=== PATIENT | male | born 1955 | race Caucasian/White ===

== ENCOUNTER 2018-02-08 11:15 | Emergency (ER) | payer OTHER ==
[~2018-02-08] VITALS: Ht 171.4 cm; Wt 69.4 kg
[~2018-02-08 11:15] MED LIST: ATIVAN0.5 M1 PO; LOSARTAN POTASS25 M1 PO; NICORELIEF2 MG PO; PRAVASTATIN SOD20 M2 PO; SERTRALINE HCL50 MG PO; TRAZODONE HCL50 M1 PO
--- NOTE | 2018-02-08 12:05 | ED EYE COMPLAINT ---
History of Present Illness General Chief Complaint: General Adult Stated Complaint: SENT BY MD FOR EVAL ?CLOGGED ARTERIES Source: patient Exam Limitations: no limitations Vital Signs & Intake/Output Vital Signs & Intake/Output Vital Signs Date Time Temp Pulse Resp B/P B/P Pulse O2 O2 Flow FiO2 Mean Ox Delivery Rate 02/08 1923 97.2 66 18 134/66 97 Room Air Room Air 02/08 1819 97.0 68 18 138/68 97 Room Air Room Air 02/08 1503 65 18 166/78 98 Room Air Room Air 02/08 1123 96.3 88 18 181/79 99 Room Air Room Air ED Intake and Output 02/09 0000 02/08 1200 Intake Total Output Total Balance Patient 153 lb Weight Weight Reported by Patient Measurement Method Allergies Coded Allergies: No Known Allergies (06/02/17) Reconcile Medications Clopidogrel Bisulfate (Plavix) 75 MG TABLET 1 TAB PO DAILY carotid artery stenosis Lorazepam (Ativan) 0.5 MG TABLET 0.5 MG PO 0800,1400,2000 panic/severe anxiety Losartan Potassium 25 MG TABLET 25 MG PO DAILY control blood pressure Nicotine (Nicorelief) 2 MG GUM 2 MG PO Q2 HRS NEEDED PRN nicotine cravings Pravastatin Sodium 20 MG TABLET 40 MG PO 1700 control lipids Sertraline HCl 50 MG TABLET 150 MG PO 1000 anti-anxiety/anti-panic Trazodone HCl 50 MG TABLET 50 MG PO AT BEDTIME NEEDED PRN INSOMNIA Triage Note: PT TO ED WITH C/O "MY VISION IN MY LEFT EYE IS GETTING WORSE, WENT TO SEE DR NAVI SAWYER TODAY, SENT TO ED FOR MRI, HE IS WORRIED ABOUT A BLOOD CLOT, I ORIGINALLY WENT TO HIM ABOUT MY LEFT KNEE I NEED AN XRAY OF THAT TOO". Triage Nurses Notes Reviewed? yes Onset: Abrupt Duration: week(s):, intermittent Timing: recent history Injury Environment: home HPI: 62-year-old male sent into the emergency room for further evaluation by his primary care doctor for intermittent vision loss in the left eye and has been going on for the past few weeks. Patient reports that he has been having blurry vision issues with his left eye for many months. Over last 2 weeks she's had 2 separate episodes that lasted about 5 minutes reads had vision loss in his left eye. He denies any pain to his eye. Denies any confusion or slurring of his words. Denies any weakness in any of the extremities. Denies any chest pain or shortness of breath. He comes in sent in by his primary care doctor for further evaluation. He reports that he went to see his primary care doctor primarily for his left knee pain which has been going on for quite some time. He does have some chronic issues before and this left knee. (Yamileth Oreilly) Past History Travel History Traveled to [place] past 21 day No Medical History Any Pertinent Medical History? see below for history Neurological: NONE EENT: NONE Cardiovascular: hypertension, HYPERLIPIDEMIA Respiratory: NONE Gastrointestinal: NONE Hepatic: NONE Renal: benign prost hyperplasia Musculoskeletal: NONE Psychiatric: MDD PTSD Endocrine: NONE Blood Disorders: NONE Cancer(s): NONE ASSEMBLER INSTALLER GENERAL/Reproductive: NONE Surgical History Surgical History: non-contributory Psychosocial History Who do you live with Patient/Self Services at Home None What is your primary language Chadian Tobacco Use: Current Daily Use Daily Tobacco Use Amount/Type: => 5 Cigarettes daily ETOH Use: occasional use Illicit Drug Use: marijuana Family History Family History, If Any: MOTHER (Breast cancer). SISTER (Colon cancer). Hx Contributory? No (Yamileth Oreilly) Review of Systems Review of Systems Constitutional: Reports: no symptoms. Eyes: Reports: see HPI. Ear: Reports: no symptoms. Nose: Reports: no symptoms. Mouth: Reports: no symptoms. Throat: Reports: no symptoms. Respiratory: Reports: no symptoms. Cardiovascular: Reports: no symptoms. GI: Reports: no symptoms. Genitourinary: Reports: no symptoms. Musculoskeletal: Reports: no symptoms. Skin: Reports: no symptoms. Neurological/Psychological: Reports: no symptoms. Hematologic/Endocrine: Reports: no symptoms. Immunologic/Allergic: Reports: no symptoms. All Other Systems: Reviewed and Negative (Yamileth Oreilly) Physical Exam General Appearance: well developed/nourished, mild distress General Inspection: normal inspection Eyelid: normal inspection Conjunctiva/Sclera: normal inspection Cornea: normal inspection EOM: intact Pupil: normal pupil, PERRL Anterior Chamber: funduscopic exam limited but no acute findings General Inspection: normal inspection Eyelid: normal inspection Conjunctiva/Sclera: normal inspection Cornea: normal inspection EOM: intact Pupil: normal pupil, PERRL Anterior Chamber: normal inspection Posterior Segments: funduscopic exam limited but no acute findings Physical Exam Head: atraumatic Nose: normal inspection Mouth/Throat: normal mouth inspection Neck: normal inspection, bruit left carotid Cardiovascular/Respiratory: normal breath sounds, regular rate/rhythm Neurologic/Psych: no motor/sensory deficits, awake, alert, oriented x 3, normal gait, normal mood/affect, 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 occlusion, carotid artery stenosis, CVA, Plan of Care: Orders Procedure Date/time Status Regular Diet 02/08 D Active PARTIAL THROMBOPLASTIN TIME 02/08 1157 Complete PROTHROMBIN TIME 02/08 1157 Complete COMPREHENSIVE METABOLIC PANEL 02/08 1157 Complete CBC WITHOUT DIFFERENTIAL 02/08 1157 Complete EKG 02/08 1157 Active Laboratory Tests 02/08/18 1504: Anion Gap 11, Estimated GFR > 60, BUN/Creatinine Ratio 18.0, Glucose 88, Calcium 9.6, Total Bilirubin 0.6, AST 25, ALT 24, Alkaline Phosphatase 45, Total Protein 7.5, Albumin 4.4, Globulin 3.1, Albumin/Globulin Ratio 1.4, PT 10.9, INR 1.00, APTT 32, CBC w Diff NO MAN DIFF REQ, RBC 3.47 L, MCV 100.6 H, MCH 33.9 H, MCHC 33.7, RDW 14.6 H, MPV 8.1, Gran % 65.9, Lymphocytes % 27.0, Monocytes % 5.9, Eosinophils % 1.1, Basophils % 0.1, Absolute Granulocytes 3.6, Absolute Lymphocytes 1.5, Absolute Monocytes 0.3, Absolute Eosinophils 0.1, Absolute Basophils 0 Diagnostic Imaging: Viewed by Me: Radiology Read, CT Scan, MRI, Ultrasound. Discussed w/RAD: Radiology Read, CT Scan, MRI, Ultrasound. Radiology Impression: PATIENT: FLIP ESTRADA PRESENT AGE: 62 PATIENT ACCOUNT NO: [id number] : 57 LOCATION: [facility] ORDERING PHYSICIAN: Yamileth SMALSL SERVICE DATE: 02/08/18 EXAM TYPE: CAT - CT HEAD ANGIOGRAM; CT NECK ANGIOGRAM EXAMINATION: CT HEAD ANGIOGRAM, CT NECK ANGIOGRAM CLINICAL INFORMATION: Intermittent vision loss left eye. Evaluate for clot. Bruit and left carotid. COMPARISON: Brain MRI same day. TECHNIQUE: Engineer Booster And Exhauster images were obtained. A CT angiogram of the head and neck was performed in the arterial phase after the intravenous administration of 95 mL Optiray 320. Pre and delayed postcontrast images of the head were also obtained. MIP reconstructions were generated in multiple orientations at the acquisition workstation. Multiple three-dimensional surface rendered images and maximum intensity projection images were generated on a dedicated 3-D lab workstation. Arterial stenoses are measured in accordance with NASCET criteria or similar method if applicable. Total exam dose-length product 1648.03 mGy-cm FINDINGS: Head: The delayed postcontrast images reveal no abnormal intracranial mass or enhancement. There is no intracranial mass effect or midline shift. Lateral and third ventricles are normal. No hydrocephalus. Baldwin-white matter differentiation is grossly preserved and there is no evidence of acute territorial infarct. No acute hemorrhage and no abnormal extra-axial collection. The calvarium and skull base are intact. There is a trace right mastoid tip effusion. Paranasal sinuses are well-aerated with exception of a few small mucous retention cysts within the alveolar recesses of the maxillary sinuses. CT angiogram neck: The aortic arch apex is normal and the origins of major aortic branches are patent. Partially calcified atheromatous plaque involves both carotid bifurcations. There is 75% stenosis of the left internal carotid artery at its origin and 50% post bulbar stenosis. There is no stenosis of the right extracranial internal carotid artery. The cervical segments of the vertebral arteries as well as their origins are widely patent. CT angiogram head: Calcified plaque causes no more than mild tandem narrowing within the cavernous segments of both internal carotid arteries. The intradural vertebral artery segments and basilar artery are patent. Visualized portions of the anterior, middle, and posterior cerebral artery complexes are normal. No evidence of high-grade stenosis or proximal large vessel occlusion is visualized within the intracranial vessels. Other: There is emphysema visualized within the apices of both lungs. Soft tissues of the neck including the thyroid gland are unremarkable. Grossly no pathologically enlarged cervical lymph nodes. IMPRESSION: There is 75% stenosis of the left internal carotid artery at its origin and 50% post bulbar stenosis of left internal carotid artery. A small amount of eccentric atheromatous plaque is visualized at the right carotid bifurcation. No stenosis of the right extracranial internal carotid artery. There is no more than mild tandem stenosis within the cavernous segments of internal carotid arteries. Otherwise no high- grade stenosis or proximal large vessel occlusion is visualized within the intracranial vessels. DICTATED BY: Jack Rincon MD DATE/TIME DICTATED:1822 TIP FIXER:[place] DATE/TIME TRANSCRIBED:02/08/181822 CONFIDENTIAL, DO NOT COPY WITHOUT APPROPRIATE AUTHORIZATION. <Electronically signed in Other Vendor System> SIGNED BY: Jack Rincon MD 02/08/181834, PATIENT: FLIP ESTRADA PRESENT AGE: 62 PATIENT ACCOUNT NO: [id number] : 57 LOCATION: [facility] ORDERING PHYSICIAN: Yamileth SMALLS SERVICE DATE: 02/08/18 EXAM TYPE: MRI - MRI-HEAD W/O LYN MR BRAIN WITHOUT IV CONTRAST CLINICAL INFORMATION: Intermittent vision loss of the left eye. Rule out CVA. COMPARISON: None available. TECHNIQUE: MRI of the brain without contrast was obtained using routine sequences. FINDINGS: Motion degraded study. There is no hydrocephalus, extra-axial surface collection, or herniation. There are T2 signal changes within the supratentorial white matter and central taylor, most likely mild to moderate chronic microangiopathy. The major flow voids at the skull base are preserved. Accounting for edge artifact within the occipital lobes bilaterally, no true acute infarcts are appreciated on the diffusion weighted series. There is no intracranial hemorrhage on the gradient recalled echo acquisition. The midline structures are normal. The cerebellar tonsils are normally positioned. The craniocervical junction is normal. Osseous marrow signal intensity is homogenous. The visualized soft tissues are unremarkable. There is mild mucosal thickening throughout the ethmoid air cells bilaterally and there is a small retention cyst within the left maxillary sinus. The mastoid air cells remain well-aerated. IMPRESSION: - Artifactually degraded study with no definite acute intracranial findings. No acute infarcts. - Mild to moderate chronic microangiopathy. DICTATED BY: Teddy Loo MD DATE/TIME DICTATED:02/08/181532 TIP FIXER:[place] DATE/ TIME TRANSCRIBED:02/08/181532 CONFIDENTIAL, DO NOT COPY WITHOUT APPROPRIATE AUTHORIZATION. <Electronically signed in Other Vendor System> SIGNED BY: Teddy Loo MD 02/08/18 1547, PATIENT: FLIP ESTRADA PRESENT AGE: 62 PATIENT ACCOUNT NO: [id number] : 57 LOCATION: [facility] ORDERING PHYSICIAN: Yamileth SMALLS SERVICE DATE: 02/08/18 EXAM TYPE : US - [id number] DOPPLER EXAMINATION: DUPLEX BILATERAL CAROTID ULTRASOUND CLINICAL INFORMATION: Carotid bruit COMPARISON: None. TECHNIQUE: Duplex bilateral carotid US was performed using real-time ultrasound and Doppler techniques (integrating B-mode 2D vascular images, Doppler spectral analysis and color flow Doppler imaging). These techniques were utilized to interrogate the extracranial carotid and vertebral arteries bilaterally. The degree of stenosis is based off criteria similar to NASCET. FINDINGS: 1. On the right: There is a hemodynamically significant stenosis correlating to 50-79% diameter reduction of the proximal internal carotid artery. A moderate amount of hyperechoic plaque is noted at the bifurcation extending into the proximal internal carotid artery. The peak systolic and diastolic velocities as measured within the proximal internal carotid artery equals 157 and 63 cm/s respectively. The vertebral artery is patent demonstrating antegrade flow. The right ECA demonstrates a moderate stenosis with peak systolic velocity of 262 cm/s. 2. On the left: There is a hemodynamically significant stenosis correlating to 50-79% diameter reduction of the proximal internal carotid artery. A moderate amount of hyperechoic plaque is noted at the bifurcation extending into the proximal internal carotid artery. The peak systolic and diastolic velocities as measured within the proximal internal carotid artery equals 166 and 30 cm/s respectively. The vertebral artery is patent demonstrating antegrade flow. The left external carotid artery shows no significant stenosis. IMPRESSION: Bilateral hemodynamically significant stenoses consistent with a 50-79% diameter reduction involving both the proximal left and right internal carotid arteries. DICTATED BY: Miles Marrero MD DATE/TIME DICTATED:02/08/181255 TIP FIXER: [place] DATE/TIME TRANSCRIBED:02/08/181255 CONFIDENTIAL, DO NOT COPY WITHOUT APPROPRIATE AUTHORIZATION. <Electronically signed in Other Vendor System> SIGNED BY: Miles Marrero MD 02/08/18 1402, PATIENT: FLIP ESTRADA PRESENT AGE: 62 PATIENT ACCOUNT NO: [id number] : LOCATION: [facility] ORDERING PHYSICIAN: Yamileth SMALLS SERVICE DATE: 2222 EXAM TYPE: RAD - XRY-KNEE COMPLETE LEFT EXAMINATION: XR KNEE, LEFT CLINICAL INFORMATION: Left knee pain. History of remote injury. No recent injury. COMPARISON: None TECHNIQUE: 5 views of the left knee. FINDINGS: There is diffuse osteopenia. No acute fracture or dislocation is seen. In the patellofemoral joint, there is joint space narrowing and spurring seen. There is also a bulky superior spur noted along the patella projecting into the joint. This may be due to sequelae of previous injury. Trace suprapatellar knee joint effusion is seen. The medial femoral compartment is well-maintained with only minimal spurring noted. Mild narrowing of the lateral femoral compartment is seen. IMPRESSION: 1. Prominent spur arising from the upper pole of the patella is seen, possibly related to sequelae of previous injury. Moderate patellofemoral osteoarthritic changes are noted with trace suprapatellar knee joint effusion. 2. Mild degenerative change in the medial and lateral femoral compartments. 3. No acute fracture or dislocation. DICTATED BY: Deena Campbell MD DATE/TIME DICTATED:02/08/181311 TIP FIXER:[place] DATE/TIME TRANSCRIBED:02/08/181311 CONFIDENTIAL, DO NOT COPY WITHOUT APPROPRIATE AUTHORIZATION. <Electronically signed in Other Vendor System> SIGNED BY: Deena Campbell MD 02/08/18 1318 Comments: 02/08/2018 5:58:[address] Colvin from vascular surgery. Patient is going to need a carotid endarterectomy. He will also need ophthalmology. He can see the patient tomorrow in the office but once the patient also see ophthalmology. Spoke with Dr. granda who can see the patient tomorrow in the office. Due to the fact the patient is asymptomatic at the moment and currently no visual symptoms there is nothing emergent for him have to do from an ophthalmology standpoint. Patient clinically looks well. Patient was reevaluated multiple times. This was a complex case that required multiple phone calls with consultants. Patient has been asymptomatic here in the emergency room. He needs close follow-up. Patient was told the importance of following up with the family law paralegal and vascular surgeon tomorrow. He is to return immediately to the emergency room if he has any recurrent symptoms. He understands and agrees with plan of care. (Yamileth Oreilly) Departure Departure Disposition: HOME OR SELF CARE Condition: Stable Clinical Impression Primary Impression: Amaurosis fugax of left eye Referrals: Vinicius DONALD,Josh Granda MD,Petar Simmons MD,Navi Baeza (PCP/Family) Additional Instructions: Follow-up with family law paralegal tomorrow. Follow-up with vascular surgeon tomorrow. Take aspirin 81 mg daily. Return immediately if any vision loss or any other concerns worsening symptoms. Please go over all results of today's visit with your primary care doctor. Contact your primary care doctor to let them know you were here in the emergency room. There may be nonspecific findings which may not be related to your visit today here in the emergency room but may require further evaluation and chronic monitoring by your primary care doctor. If you had a laceration today the chance of foreign body always remains. You should follow-up with your primary care doctor for recheck in 3-5 days for a wound check. If you had an x-ray done there is a chance that a fracture could have been missed on initial read and you should follow-up with your primary care doctor for repeat x-rays if symptoms persist. If your blood pressure was elevated here in the emergency room please have rechecked by [facility] primary care doctor within the next 48. If you were prescribed a narcotic here in the emergency room or any type of controlled substances you're not allowed to drive while taking this medication or operate any type of heavy machinery. Narcotics can make you feel lightheaded dizziness nausea and can cause constipation. You may need to pepper picker a stool softener. Thank you for choosing [facility] emergency room. Please return to the emergency room immediately if you have any other concerns worsening of symptoms. Departure Forms: Customer Survey General Discharge Information Prescriptions: Current Visit Scripts Clopidogrel Bisulfate (Plavix) 1 TAB PO DAILY #30 TAB (Yamileth Oreilly) PA/BRUSH WASHER Co-Sign Statement Statement: ED Attending supervision documentation- [] I saw and evaluated the patient. I have also reviewed all the pertinent lab results and diagnostic results. I agree with the findings and the plan of care as documented in the PA's/BRUSH WASHER's documentation. [] I have reviewed the ED Record and agree with the PA's/BRUSH WASHER's documentation. [] Additions or exceptions (if any) to the PAs/BRUSH WASHER's note and plan are summarized below: [PT SEEN BY DR. BRITO WITH YAMILETH, I NEVER SAW THIS PATIENT] (Krzysztof DONALD,Navi Donato) PA/BRUSH WASHER Co-Sign Statement Statement: ED Attending supervision documentation- X I saw and evaluated the patient. I have also reviewed all the pertinent lab results and diagnostic results. I agree with the findings and the plan of care as documented in the PA's/BRUSH WASHER's documentation. [] I have reviewed the ED Record and agree with the PA's/BRUSH WASHER's documentation. [] Additions or exceptions (if any) to the PAs/BRUSH WASHER's note and plan are summarized below: [] (Brittany DONALD,Alexander)
--- NOTE | 2018-02-08 13:18 | RADIOLOGY REPORT ---
EXAMINATION: XR KNEE, LEFT CLINICAL INFORMATION: Left knee pain. History of remote injury. No recent injury. COMPARISON: None TECHNIQUE: 5 views of the left knee. FINDINGS: There is diffuse osteopenia. No acute fracture or dislocation is seen. In the patellofemoral joint, there is joint space narrowing and spurring seen. There is also a bulky superior spur noted along the patella projecting into the joint. This may be due to sequelae of previous injury. Trace suprapatellar knee joint effusion is seen. The medial femoral compartment is well-maintained with only minimal spurring noted. Mild narrowing of the lateral femoral compartment is seen. IMPRESSION: 1. Prominent spur arising from the upper pole of the patella is seen, possibly related to sequelae of previous injury. Moderate patellofemoral osteoarthritic changes are noted with trace suprapatellar knee joint effusion. 2. Mild degenerative change in the medial and lateral femoral compartments. 3. No acute fracture or dislocation.
--- NOTE | 2018-02-08 14:02 | ULTRASOUND REPORT ---
EXAMINATION: DUPLEX BILATERAL CAROTID ULTRASOUND CLINICAL INFORMATION: Carotid bruit COMPARISON: None. TECHNIQUE: Duplex bilateral carotid US was performed using real-time ultrasound and Doppler techniques (integrating B-mode 2D vascular images, Doppler spectral analysis and color flow Doppler imaging). These techniques were utilized to interrogate the extracranial carotid and vertebral arteries bilaterally. The degree of stenosis is based off criteria similar to NASCET. FINDINGS: 1. On the right: There is a hemodynamically significant stenosis correlating to 50-79% diameter reduction of the proximal internal carotid artery. A moderate amount of hyperechoic plaque is noted at the bifurcation extending into the proximal internal carotid artery. The peak systolic and diastolic velocities as measured within the proximal internal carotid artery equals 157 and 63 cm/s respectively. The vertebral artery is patent demonstrating antegrade flow. The right ECA demonstrates a moderate stenosis with peak systolic velocity of 262 cm/s. 2. On the left: There is a hemodynamically significant stenosis correlating to 50-79% diameter reduction of the proximal internal carotid artery. A moderate amount of hyperechoic plaque is noted at the bifurcation extending into the proximal internal carotid artery. The peak systolic and diastolic velocities as measured within the proximal internal carotid artery equals 166 and 30 cm/s respectively. The vertebral artery is patent demonstrating antegrade flow. The left external carotid artery shows no significant stenosis. IMPRESSION: Bilateral hemodynamically significant stenoses consistent with a 50-79% diameter reduction involving both the proximal left and right internal carotid arteries.
--- NOTE | 2018-02-08 14:09 | RADIOLOGY REPORT ---
EXAMINATION: MR ORBITAL FOREIGN BODY SCREENING CLINICAL INFORMATION: Rule out foreign body in eyes, metal in eyes. Pre-MRI screening. COMPARISON: None. TECHNIQUE: Three views of the orbits were obtained on 5 images. FINDINGS: Three views demonstrate no reproducible radiopaque foreign bodies in or around the orbits. ADDITIONAL FINDINGS: Dental orthotic is seen in place. Nasal septal deviation towards the left side is seen. Included paranasal sinuses are clear. IMPRESSION: No reproducible radiopaque foreign body in or around the orbits.
[2018-02-08 15:12] LABS: ABSOLUTE BASOPHIL COUNT 0 /CUMM (0.0-0.2); ABSOLUTE EOSINOPHIL COUNT 0.1 /CUMM (0.0-0.7); ABSOLUTE GRANULOCYTE CT 3.6 /CUMM (1.4-6.5); ABSOLUTE LYMPH COUNT 1.5 /CUMM (1.2-3.4); ABSOLUTE MONOCYTE COUNT 0.3 /CUMM (0.10-0.60); BASOPHIL % 0.1 % (0.0-2.0); EOSINOPHIL % 1.1 % (0-5); GRANULOCYTE % 65.9 % (42.2-75.2); HEMATOCRIT 34.9 % (42-52); MEAN CORPUSCULAR HGB 33.9 PG (27.0-31.0); MEAN CORPUSCULAR HGB CONC 33.7 G/DL (33.0-37.0); MEAN CORPUSCULAR VOLUME 100.6 FL (80.0-94.0); MEAN PLATELET VOLUME 8.1 FL (7.4-10.4); PLATELET COUNT 158 /CUMM (130-400); RBC DISTRIBUTION WIDTH 14.6 % (11.5-14.5); RED BLOOD CELL CT 3.47 /CUMM (4.70-6.10); WHITE BLOOD CELL COUNT 5.4 /CUMM (4.8-10.8)
[2018-02-08 15:22] LABS: PT 10.9 SEC (9.4-12.5); PTT 32 SEC (25-37)
--- NOTE | 2018-02-08 15:47 | MRI REPORT ---
MR BRAIN WITHOUT IV CONTRAST CLINICAL INFORMATION: Intermittent vision loss of the left eye. Rule out CVA. COMPARISON: None available. TECHNIQUE: MRI of the brain without contrast was obtained using routine sequences. FINDINGS: Motion degraded study. There is no hydrocephalus, extra-axial surface collection, or herniation. There are T2 signal changes within the supratentorial white matter and central taylor, most likely mild to moderate chronic microangiopathy. The major flow voids at the skull base are preserved. Accounting for edge artifact within the occipital lobes bilaterally, no true acute infarcts are appreciated on the diffusion weighted series. There is no intracranial hemorrhage on the gradient recalled echo acquisition. The midline structures are normal. The cerebellar tonsils are normally positioned. The craniocervical junction is normal. Osseous marrow signal intensity is homogenous. The visualized soft tissues are unremarkable. There is mild mucosal thickening throughout the ethmoid air cells bilaterally and there is a small retention cyst within the left maxillary sinus. The mastoid air cells remain well-aerated. IMPRESSION: - Artifactually degraded study with no definite acute intracranial findings. No acute infarcts. - Mild to moderate chronic microangiopathy.
--- NOTE | 2018-02-08 18:35 | CT SCAN REPORT ---
EXAMINATION: CT HEAD ANGIOGRAM, CT NECK ANGIOGRAM CLINICAL INFORMATION: Intermittent vision loss left eye. Evaluate for clot. Bruit and left carotid. COMPARISON: Brain MRI same day. TECHNIQUE: Scrub Woman images were obtained. A CT angiogram of the head and neck was performed in the arterial phase after the intravenous administration of 95 mL Optiray 320. Pre and delayed postcontrast images of the head were also obtained. MIP reconstructions were generated in multiple orientations at the acquisition workstation. Multiple three-dimensional surface rendered images and maximum intensity projection images were generated on a dedicated 3-D lab workstation. Arterial stenoses are measured in accordance with NASCET criteria or similar method if applicable. Total exam dose-length product 1648.03 mGy-cm FINDINGS: Head: The delayed postcontrast images reveal no abnormal intracranial mass or enhancement. There is no intracranial mass effect or midline shift. Lateral and third ventricles are normal. No hydrocephalus. Baldwin-white matter differentiation is grossly preserved and there is no evidence of acute territorial infarct. No acute hemorrhage and no abnormal extra-axial collection. The calvarium and skull base are intact. There is a trace right mastoid tip effusion. Paranasal sinuses are well-aerated with exception of a few small mucous retention cysts within the alveolar recesses of the maxillary sinuses. CT angiogram neck: The aortic arch apex is normal and the origins of major aortic branches are patent. Partially calcified atheromatous plaque involves both carotid bifurcations. There is 75% stenosis of the left internal carotid artery at its origin and 50% post bulbar stenosis. There is no stenosis of the right extracranial internal carotid artery. The cervical segments of the vertebral arteries as well as their origins are widely patent. CT angiogram head: Calcified plaque causes no more than mild tandem narrowing within the cavernous segments of both internal carotid arteries. The intradural vertebral artery segments and basilar artery are patent. Visualized portions of the anterior, middle, and posterior cerebral artery complexes are normal. No evidence of high-grade stenosis or proximal large vessel occlusion is visualized within the intracranial vessels. Other: There is emphysema visualized within the apices of both lungs. Soft tissues of the neck including the thyroid gland are unremarkable. Grossly no pathologically enlarged cervical lymph nodes. IMPRESSION: There is 75% stenosis of the left internal carotid artery at its origin and 50% post bulbar stenosis of left internal carotid artery. A small amount of eccentric atheromatous plaque is visualized at the right carotid bifurcation. No stenosis of the right extracranial internal carotid artery. There is no more than mild tandem stenosis within the cavernous segments of internal carotid arteries. Otherwise no high-grade stenosis or proximal large vessel occlusion is visualized within the intracranial vessels.
[2018-02-08] MEDS ORDERED: PLAVIX75 M1 PO (18:58)
[2018-02-08 19:23] VITALS: BP 134/66
== END 2018-02-08 19:24 ==
LOC: ERH 11:15
PROVIDERS: Physician Assistant Medical
DX: G45.3 Amaurosis fugax (principal)
CPT/HCPCS: 70551; 70200; 73562-LT; 93005; 93010; J3490

== ENCOUNTER 2018-02-19 01:17 | Inpatient (IN) | payer OTHER ==
[~2018-02-19] VITALS: Ht 170.2 cm; Wt 60.0 kg
[~2018-02-19 01:17] MED LIST changes: +ASPIRIN EC81 M1 PO; +CLONAZEPAM0.5 M2 PO; +COD LIVER OIL1 EAC3 PO; +FLOMAX0.4 M1 PO; +LOSARTAN POTASS50 M1 PO; +PLAVIX75 M1 PO; +PRAVASTATIN SOD40 M2 PO; +SERTRALINE HCL100 MG PO; +VITAMIN D1000 UNIT PO
--- NOTE | 2018-02-19 14:33 | Surg Short-stay <48hrs Dis Sum ---
See Addendum Visit Information Visit Dates Admission Date: 02/19/18 Discharge Date: 02/20/2018 Surgical Short Stay DC Summary Admission Diagnosis: carotid artery stenosis Final Diagnosis: same s/p L CEA Procedure(s): Left CEA Summary/Significant Findings: Pt underwent a L CEA by Dr Colvin on 02/19 and was brought to the PACU in stable condition. Overnight he was kept in the ICU for close monitoring of vital signs and neurovascular checks. He did well overnight without complications. He was neurovascularly intact post op. His pain was controlled. On POD 1 he was cleared for discharge home. Condition at Discharge: good Discharge Disposition: home or self care Discharge instructions provided to patient/family: Yes Post discharge follow-up plan: Call for an appointment to be seen within 10-14 days after discharge. Copies to: Vinicius DONALD,Josh
[2018-02-19] MEDS ORDERED: TYLENOL EXTRA500 M2 PO (14:34)
--- NOTE | 2018-02-19 14:37 | Patient Discharge Instructions ---
Discharge Instructions General Discharge Information You were seen/treated for: Carotid artery stenosis You had these procedures: Left carotid endarterectomy Watch for these problems: temp>101, increased redness or drainage of wound, increased weakness or slurring of speech Do not soak the wound: Yes Other wound care: Keep incision clean and dry. Diet Continue normal diet: Yes Activity Activity Self Limited: Yes Acute Coronary Syndrome Inclusion Criteria At DC or during hospital stay patient has or had the following: ACS DIAGNOSIS No Discharge Core Measures Meds if any: Prescribed or Continued at Discharge Meds if any: NOT Prescribed or Continued at Discharge Congestive Heart Failure Inclusion Criteria At DC or during hospital stay patient has or had the following: CHF DIAGNOSIS No Discharge Core Measures Meds if any: Prescribed or Continued at Discharge Meds if any: NOT Prescribed or Continued at Discharge Cerebrovascular accident Inclusion Criteria At DC or during hospital stay patient has or had the following: CVA/TIA Diagnosis No Discharge Core Measures Meds if any: Prescribed or Continued at Discharge Meds if any: NOT Prescribed or Continued at Discharge Venous thromboembolism Inclusion Criteria VTE Diagnosis No VTE Type NONE VTE Confirmed by (Test) NONE Discharge Core Measures - Per Current guidelines, there needs to be overlap - treatment for the first 5 days of Warfarin therapy. - If discharged on Warfarin prior to 5 days of - overlap therapy, the patient will need to be - assessed for post discharge needs including - *Post discharge parental anticoagulation - *Warfarin and/or parental anticoagulation education - *Follow up date to check INR post discharge At least 5 days overlap therapy as Inpatient No Meds if any: Prescribed or Continued at Discharge Note: Overlap Therapy is Warfarin and Anticoagulant Meds if any: NOT Prescribed or Continued at Discharge
--- NOTE | 2018-02-19 15:15 | PN- Vascular Surgery ---
Subjective Subjective: POC pt in bed, minimal left-sided neck pain. Deneis paresthesias. Denies difficulty swallowing No MCKEON. No CP/SOB. Tolerating clears, no N/V Objective Vital Signs and I&Os VSS, afebrile Physical Exam: gen- NAD neck- minimal left sided neck swelling. Some sand drainage on inferior aspectr of dressing resp- clear cardiac- RRR abd- ND, soft, NT ext- 2+ DP and readial pulse bilaterally. distal sensory and motor function inatct on upper and lower extremities. Assessment/Plan Assessment/Plan 63yo M SP Left CEA POD0. stable Q4 neurovascular check overnight pain management with PO meds advance diet as tolerated OOB dvt ppx- asa 81mg daily, alps and early ambulation FU AM labs DC planning- likely home tomorrow FU with Dr Colvin in 1-2 weeks Core Measures Venous Thromboembolism VTE Risk Factors Surgery No Mechanical VTE Prophylaxis d/t N/A MechProphylax Ordered No VTE Pharm Prophylaxis d/t Surgical Contraindication
--- NOTE | 2018-02-19 15:42 | Operative Report ---
Operative/Inv Procedure Report Surgery Date: 02/19/18 Name of Procedure: left carotid endarterectomy Pre-Operative Diagnosis: left symptomatic carotid artery stenosis Post-Operative Diagnosis: same Estimated Blood Loss: less than 50ml Surgeon/Rail Gang Supervisor: Vinicius DONALD,Josh assistant child care teacher-- Javier Beth MD Anesthesia: block Specimens: carotid plaque Complications: none Operative Indication: 63 y/o m w/ hx of smoking who presented with transiet loss of vision in the eye. Carotid US and CTA demonstrated high grade stenosis of the left internal carotid artery. Therefore out of concern for symptomatic carotid artery disease we planned to take pt for left carotid endarterectomy. He underwent pre operative cardiology clearnace. He also saw opthamologist pre operatively. Risks/benefits/alternatives of surgery explained including risk of bleeding, infection, stroke, nerve injury. informed consent obtained and placed in the chart. Operative/Procedure Note Note: pt was brought to the OR. Time out was done to verify patient name, mrn, . Once this was verified a left cervical block was performed and a radial muna was place. We then proceeded to prep and drape the left neck in a sterile fashion. Dr. Beth assisted me for the entirety of the procedure as there was no available pa or resident with adequate experience to assist me. We then proceded to make and incision along the medial border of the sternocleido mastoid using a 15 blade scalpel. We then dissected down through the subcutaneous tissue and platysma using electocautery. We then mobilized the sternocleidomastoid laterally and tied off any crossing veins. We then identified the jugular vein and mobilized this laterally to expose the common carotid artery. The facial vein was identified and tied off. We then dissected the common carotid artery cirucumferentially and obtained control with vessel loop. The dissection was continued proximally and we gained control of the internal and external carotid arteries with vessel loops. The hypoglossal and vagus nerves were identified and we took care to protect and preserve these nerves. The patient was fully heparinized. We then clamped the internal followed by common and then external carotid artery. The patient remained neurologically intact and therefore was not shunt dependent. WE then made and arteriotomy with an 11 blade scalpel and continued this up to the internal carotid artery with beltran scissors until normal intima was encountered. Using the freer elevator we then performed the endarterectomy with eversion of the external carotid artery. we removed all free debries until and confirmed this with heparinzed saline. Once we were satisfied with the endarterectomy we placed some 7.0 prolene sutures to tack the interal carotid intima. We then placed a 8mm x 8 bovine pericardial patch and sutured it into place using 2 x 6.0 prolene sutures in the usual running to continous fashion. The artery was back bled and flushed prior to placing the final stiches. We then released the external carotid followed by the common and lastly the internal carotid artery. The patient remained neurologically intact. He was reversed with protamine. We obtained copious hemostasis with additional stiches and gel foam. Once we were satisfied with the hemostasis we copiously irrigated the wound. We then closed the deep layer with 2.0 vircyl, the platysma with 3.0 vircyl and then the skin with 4.0 monocryl. A sterile dressing was placed. All counts were accurate at the end of the case. The patient was transferred to the pacu in stable condition.
[2018-02-19 16:00] VITALS: BP 92/60
[2018-02-20] VITALS: BP 110/60
--- NOTE | 2018-02-20 05:59 | PN- Vascular Surgery ---
Subjective Subjective: Awake, alert No complaints overnight - took percocet one time Pain well controlled now, no nausea Objective Vital Signs and I&Os Vital Signs Date Time Temp Pulse Resp B/P B/P Pulse O2 O2 Flow FiO2 Mean Ox Delivery Rate 02/20 0400 97 Room Air 02/20 0000 96 Room Air 02/20 96.8 76 28 110/60 96 Room Air 02/19 1600 96 Room Air 02/19 1600 98.0 53 18 92/60 96 Room Air Intake & Output 02/20 1600 02/19 0802/19 0000 02/18 1600 Intake Total 1309 Output Total 1050 Balance 259 Intake, IV 589 Intake, Oral 720 Output, Urine 1050 Patient 132 lb 132 lb Weight Weight Bed scale Bed scale Measurement Method Physical Exam: vss, afebrile General: alert and oriented times three Chest: clear bilaterally, RRR Abd: soft, good bs Ext: warm, no edema Wd: dressing wet - changed, no active bleeding, looks good Assessment/Plan Assessment/Plan 63yo male pod 1 s/p L CEA breakfast this am dc ivf dc home after tolerates a regular diet all questions answered Core Measures Venous Thromboembolism VTE Risk Factors Surgery No Mechanical VTE Prophylaxis d/t N/A MechProphylax Ordered No VTE Pharm Prophylaxis d/t Surgical Contraindication
[2018-02-20] MEDS ORDERED: PERCOCET 5-3251 EACH PO (07:11)
[2018-02-20 08:00] VITALS: BP 132/60
[2018-02-20 08:26] VITALS: BP 138/60
== END 2018-02-20 09:15 | DRG 24 ==
LOC: SDA 01:17 → ENRESERV 14:16 → ENTRNSPT 15:22 → EDTRNSPT 15:29 → EDTRNSPTSTS 15:29 → CMPTRNSPT 15:47 → CRI 15:58
PROC: 03CL3ZZ Extirpation of Matter from Left Internal Carotid Artery, Percutaneous Approach (ICD-10-PCS; principal; 2018-02-19)
PROC: 3E0T3BZ Introduction of Anesthetic Agent into Peripheral Nerves and Plexi, Percutaneous Approach (ICD-10-PCS; principal; 2018-02-19)
PROC: 03UL3KZ Supplement Left Internal Carotid Artery with Nonautologous Tissue Substitute, Percutaneous Approach (ICD-10-PCS; principal; 2018-02-19)
DX: I65.22 Occlusion and stenosis of left carotid artery (principal); F17.210 Nicotine dependence, cigarettes, uncomplicated; N40.0 Benign prostatic hyperplasia without lower urinary tract symptoms; I10 Essential (primary) hypertension; F12.90 Cannabis use, unspecified, uncomplicated; Z79.01 Long term (current) use of anticoagulants; H54.7 Unspecified visual loss; E78.5 Hyperlipidemia, unspecified
CPT/HCPCS: CCU; 36415; 88304; J0131; J1644; J2001; J2720